=== PATIENT | female | born 1940 | race Caucasian/White ===

== ENCOUNTER 2019-11-26 16:11 | Inpatient (IN) | payer OTHER ==
[~2019-11-26] VITALS: Ht 162.6 cm; Wt 72.6 kg
[2019-11-26] MEDS ORDERED: AMIODARONE HCL200 MG PO (16:17)
[2019-11-26] MEDS ORDERED: TOPROL XL25 M1 PO (16:17)
[2019-11-26] MEDS ORDERED: ELIQUIS5 MG PO (16:17)
[2019-11-26] MEDS ORDERED: GALANTAMINE HBR8 MG PO (16:17)
[2019-11-26] MEDS ORDERED: LOSARTAN POTASS50 MG PO (16:18)
[2019-11-26] MEDS ORDERED: LEVO-T100 MCG PO (16:18)
[2019-11-28] MEDS ORDERED: OMEPRAZOLE20 MG (14:50)
[2019-11-28] MEDS ORDERED: PRAVASTATIN SOD40 MG (14:50)
== END 2019-12-02 16:46 | disposition home or self-care (01) | DRG 389 ==
LOC: ER 16:11 → MEDI 19:02 → SURG 19:02
PROVIDERS: ADMIT Colon & Rectal Surgery; ATTEND Colon & Rectal Surgery
PROC: BW21ZZZ Computerized Tomography (CT Scan) of Abdomen and Pelvis (ICD-10-PCS; principal; 2019-11-26)
DX: K56.600 Partial intestinal obstruction, unspecified as to cause (principal); R18.8 Other ascites; I48.20 Chronic atrial fibrillation, unspecified; K57.30 Diverticulosis of large intestine without perforation or abscess without bleeding; E87.6 Hypokalemia; Z95.1 Presence of aortocoronary bypass graft; E03.9 Hypothyroidism, unspecified; Z79.01 Long term (current) use of anticoagulants; Z91.14 Patient's other noncompliance with medication regimen; Z95.2 Presence of prosthetic heart valve